=== PATIENT | female | born 1990 | race Caucasian/White ===

== ENCOUNTER 2023-11-29 08:06 | Outpatient (AMB) | payer OTHER, SELFPAY ==
--- NOTE | 2023-11-29 08:18 | A.OFFPC_ITS ---
Vital Signs 11/29/23 08:28 Height 5 ft 4 in Weight 163 lb 6 oz BMI 28.0 BP 102/62 Blood Pressure Location Lt brachial Position Sitting Respiration 12 Pulse 94 Pulse Source Pulse Oximeter Pulse Oximetry (%) 99 Oxygen Delivery Method Room Air Intake Visit Reasons: [facility] Intake Note: Patient is here to establish care, she is currently 21 weeks and followed by [facility]. Patient reports she has no concerns. Sea Foam Kiss Maker Required: No Accompanied by: Self / Same As Patient Allergies ceclore Allergy (Severe, Uncoded 11/29/23 08:32) Rash Medication List - Last Reconciled 11/29/23 by Melina Seo MD cetirizine (Zyrtec) 10 mg PO DAILY PRN docosahexaenoic acid ( DHA) mg PO Lactobacillus acidophilus (Acidophilus capsule) 5,000 mmu cells PO DAILY levothyroxine 75 mcg PO DAILY pyridoxine (vitamin B6) 50 mg PO DAILY Tobacco use date assessed: 11/29/23 Dental Screening Dental Screen Date: 11/29/23 Did you have a dental visit in the last 12 months?: Yes Did you have a dental problem in the last 6 months where you did not have access to dental care?: No Was dental information given to patient?: Patient has dentist HPI HPI Comments History of Present Illness Details The patient is a 33-year-old female with a past medical history of hypothyroid presenting follow-up. Currently 21 weeks . 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 Last TSH 05.14. Has had a lot of fatigue and nausea with her Hypothyroid: on levothyroxine daily. Allergies On budesonide sinus rinse, p.r.n. 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 NAD EYES: EOMI. Anicteric. HENT: Moist mucous membranes. No scleral icterus. No cervical lymphadenopathy. LUNGS: Clear to auscultation bilaterally. CARDIOVASCULAR: Regular rate and rhythm. No murmur. No JVD. ABDOMEN: Soft, non-tender +bs EXTREMITIES: No edema. Non-tender. SKIN: No rashes or lesions. Warm. NEUROLOGIC: No focal neurological deficits. CN II-XII grossly intact PSYCHIATRIC: Cooperative. 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 Acid reflux disease Anxiety Asthma Surgical History No pertinent past surgical history Family History Mother High cholesterol Father Asthma Thyroid disease Social History Household Members: Spouse Household Members Other:: , 2 cats Housing: House Are you a primary manager career to a significant other at home: No Do you presently have visiting nurse or other home services: No 75 years or older and lives alone: No Alcohol intake: former Comment: social only prior to Patient Tobacco Use Status: Never used Tobacco e-Cigarette/Vaping Use: Never Used Use of substances other than those prescribed or required for medical reasons: No Have you been hit, kicked, punched, or otherwise hurt by someone within the past year? 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 1. Little interest or pleasure in doing things: not at all 2. Feeling down, depressed, or hopeless: not at all 3. Trouble falling or staying asleep, or sleeping too much: several days 4. Feeling tired or having little energy: several days 5. Poor appetite or overeating: several days 6. Feeling bad about yourself - or that you are a failure or have let yourself or your family down: not at all 7. Trouble concentrating on things, such as reading the newspaper or watching television: not at all 8. Moving or speaking so slowly that other people could have noticed. Or the opposite - being so fidgety or restless that you have been moving around a lot more than usual: several days 9. Thoughts that you would be better off or of hurting yourself in some way: not at all Total score: 4 Depression Screening Interpretation: Negative (Neg) Depression Screening Done: Yes 67026 - PHQ-9 Billing: Yes Source: Developed by Drs. Kingsley Huerta, Pavithra Jasso, Theodore Christianson and colleagues, with an educational lelo from [employer]. Thrive Questionnaire Date Thrive assessed: 11/29/23 I am a: Patient What is your living situation today?: I have a steady place to live Within the past 12 months, did the food you bought not last and you didn't have the money to get more?: Never true Within the past 12 months, did you worry whether your food would run out before you got money to buy more?: Never true Do you have trouble paying for medicines?: No Do you have trouble getting transportation to medical appointments?: No Do you have trouble paying your heating and electricity bill?: No Do you have trouble taking care of your child, family member or friend?: No Do you have trouble with day-to-day activities such as bathing, preparing meals, shopping, managing finances, etc.?: No Are you currently unemployed and looking for a job?: No Are you interested in more education?: No Please select the resources that you would like help with: None Currently or been in a relationship where the following occur: No concerns reported THRIVE Score: 0 AUDIT C Alcohol Use Questionnaire (AUDIT-C) 1. How often do you have a drink containing alcohol?: Never 3. How often do you have six or more drinks on one occasion?: Never Total Score: 0 BREONNA-7 AMB Questionnaire BREONNA-7 Date BREONNA - 7 assessed: 11/29/23 Feeling nervous, anxious, or on edge: 1 = Several days Not being able to stop or control worryin = Not at all Worrying too much about different things: 1 = Several days Trouble relaxin = Not at all Being so restless that it is hard to sit still: 0 = Not at all Becoming easily annoyed or irritable: 0 = Not at all Feeling afraid as if something awful might happen: 0 = Not at all Total BREONNA-7 score (0-4 normal; 5-9 mild; 10-14 moderate; 15-21 severe): 2 Source: Developed by Drs. Kingsley Huerta, Pavithra Jasso, Theodore Christianson and colleagues, with an educational lelo from [employer]. BREONNA-7 Assessment Billing BREONNA-7 Assessment Tool: BREONNA-7 Assessment 29339 Physical exam (Primary Care) Vital Signs: Last Vital Signs Pulse 94 11/29/23 08:28 Resp 12 11/29/23 08:28 BP 102/62 11/29/23 08:28 Pulse Ox 99 11/29/23 08:28 Oxygen Delivery Method Room Air 11/29/23 08:28 BMI result Body Mass Index 28.0 Tobacco/Smoking Status: Tobacco use Status Tobacco use date assessed 11/29/23 11/29/23 08:39 Patient Tobacco Use Status Never used Tobacco 11/29/23 08:44 e-Cigarette/Vaping Use Never Used 11/29/23 08:44 PHQ-9: PHQ-9 Score PHQ-9: Total score 4 11/29/23 08:49 Depression Screening Interpretation: Negative (Neg) Thrive Assessment: Date of Thrive Assessment Date Thrive assessed 11/29/23 11/29/23 08:39 Currently or been in a relationship where the following occur: No concerns reported Assessment and Plan Assessment & Plan (1) : Code(s): Z34.90 - Encounter for supervision of normal , unspecified, unspecified trimester Qualifiers: Weeks of gestation: 21 weeks Qualified Code(s): Z3A.21 - 21 weeks gestation of Plan: Continue follow up 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 (2) Hypothyroid: Code(s): E03.9 - Hypothyroidism, unspecified Qualifiers: Hypothyroidism type: unspecified Qualified Code(s): E03.9 - Hypothyroidism, unspecified Plan: Check TSH Levothyroxine dose has not been adjusted thus far Orders: Orders TSH reflex Free T4 Today E03.9 - Hypothyroidism, unspecified Coding Level of Care Code Est Pt Level 4 (70145) Complex EM visit Add On G2211 Diagnoses 21 weeks gestation of Z3A.21 Weeks of gestation: 21 weeks Hypothyroidism, unspecified type E03.9 Hypothyroidism type: unspecified Additional Codes BREONNA-7 Assessment Billing - BREONNA-7 Assessment Tool: BREONNA-7 Assessment 06581 ([id number])
[2023-11-29 08:28] VITALS: BP 102/62; PULSE 94; RESP 12; O2SAT 99; BMI 28.0
== END 2023-11-29 09:51 | disposition home or self-care (01) ==
PROVIDERS: PCP Internal Medicine; Visit Provider Internal Medicine
DX: E03.9 Hypothyroidism, unspecified (principal); Z3A.21 21 weeks gestation of pregnancy
CPT/HCPCS: 99214

== ENCOUNTER 2023-11-29 09:42 | Outpatient (REF) | payer OTHER, SELFPAY ==
[2023-11-29 12:54] LABS: TSH reflex Free T4 1.65 uIU/mL (0.32-4.0)
== END 2023-11-29 09:43 | disposition home or self-care (01) ==
LOC: HO.WFDLDS 09:42
PROVIDERS: Visit Provider Internal Medicine
DX: E03.9 Hypothyroidism, unspecified (principal)
CPT/HCPCS: 36415; 84443

== ENCOUNTER 2024-06-12 15:55 | Outpatient (AMB) | payer OTHER, SELFPAY ==
--- OUTSIDE RECORDS SUMMARY | 2024-06-12 15:56 | XMS_ITS | Patient Health Record ---
Author Organization [facility] Address [address] [place] [address] Care Team Providers Care Account Service Representative Name Role Phone Humera BARROW MD, JERMAINE Primary Care Provider UnavailMADAN Argueta Unavailable [phone] Allergies Allergen (clinical drug ingredient) Drug/Non Drug Allergy documented on EMR Reaction Allergy Type Onset Date Status cefaclor Cefaclor hives Drug Allergy Active Results Component Value Reference Range Notes Test, Urine Reviewed date:08/15/2023 12:14:49 PM Interpretation: Performing Lab: Notes/Report: Test, Urine POS Reason For Referral No Information Medications Medication SIG (Take, Route, Frequency, Duration) Notes Start Date End Date Status ZyrTEC Allergy 10 MG 1 tablet Orally Onc e a day for 30 day(s) Not-Taking Sudafed 30 MG 2 tablets as needed Orally every 6 hrs Not-Taking Vitamin C 100 MG 1 tablet Orally Once a day for 30 day(s) Not-Taking Levothyroxine Sodium 75 MCG 1 tablet in the morning on an empty stomach Orally Once a day Active Budesonide 0.5 MG/2ML 1 mL Inhalation Tw ice a day Active AZO Cranberry 250-30 MG as directed Orally Active PrenaFirst Active Active Social History Tobacco Use: Social History Observation Description Date Details (start date - stop date) Never Smoker NA - NA Tobacco Use/Smoking Question Answer Notes Are you a nonsmoker Alcohol Screen (Audit-C) Question Answer Notes Did you have a drink contain ing alcohol in the past year? Yes How often did you have a dri nk containing alcohol in the past year? 2 to 4 times a month (2 points) How many drinks did you have on a typical day when you were drinking in the past year? 1 or 2 drinks (0 point) How often did you have 6 or more drinks on one occasion in the past year? Never (0 point) Points 2 Interpretation Negative Problems Problem Type SNOMED Code ICD Code Onset Dates Problem Status W/U Status Risk Notes Problem Hypothyroidism (01379614) Hypothyroidism, unspecified (E03.9) Active confirmed Problem Asthma (502602435) Other asthma (J45.998) Active confirmed Problem Amenorrhea (67244068) Amenorrhea, unspecified (N91.2) Active confirmed Problem COVID-19 (408365705) COVID-19 (U07.1) Active confirmed Vital Signs Temperature 97.5 degrees Fahrenheit 08/15/2023 Blood pressure diastolic 80 mm Hg 08/15/2023 Height 64 in 08/15/2023 Blood pressure systolic 120 mm Hg 08/15/2023 Weight 152 lbs 08/15/2023 BMI 26.09 kg/m2 08/15/2023 Encounters Encounter Location Date Provider Diagnosis [place] [address] [place] [address] 08/15/2023 MADAN WOODRUFF Amenorrhea, unspecified N91.2 [email or web address] [address] [address] 08/15/2023 MADAN WOODRUFF Assessments Encounter Date Diagnosis (ICD Code) Assessment Notes Treatment Notes Treatment Clinical Notes Section Notes 08/15/2023 Amenorrhea, unspecified (ICD-10 - N91.2) Discussed Do's and Don't's of early , including importance of eating the rainbow, organic if possible, staying hydrated, getting enough rest. Encouraged to exercise and take vitamins. Encouraged to avoid alcohol, tobacco, unnecessary medications. Discussed dietary restrictions. 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 08/15/2023 Other 32 minutes were spent on the day of the visit reviewing and prepping the chart, obtaining the HPI, examining the patient, counseling the patient on the diagnosis, ordering/refilli ng medications, ordering tests and procedures and documenting this encounter. Plan Of Treatment Pending Test Test Name Order Date ANTI-HEPATITIS C 06/04/2022 HEP. B SURF. AG 06/04/2022 SYPHILIS TESTING 06/04/2022 HIV AB-AG 4TH GENERATION 06/04/2022 Insurance Providers Payer Name Payer Address Payer Phone Subscriber Number Group Number Insured Name Patient Relationship to Insured Coverage Start Date Coverage End Date [facility] [address] [facility] [place], JAM[place] [id number] LAZARO PAGE Self - patient is the insured Medical (General) History Medical History History ICD Code Other asthma J45.998 COVID-19 U07.1 Hypothyroidism, unspecified E03.9 Surgical History Surgery Date(Month/Year) wisdom teeth extraction 2007
--- OUTSIDE RECORDS SUMMARY | 2024-06-12 15:57 | XMS_ITS ---
Author Organization [facility] Address [address] [address] Care Team Providers Care Data Keyer Name Role Phone Humera BARROW MD, JERMAINE Primary Care Provider Unavailab MADAN Rowe Unavailable [phone] REASON FOR VISIT QUESTION ABOUT BENEFIBER Encounters Encounter Location Date Provider Diagnosis [facility] [address] [address] 08/15/2023 MADAN WOODRUFF Plan Of Treatment No Information Progress Notes * LAZARO VALENCIADOB: [birth year] (32 yo F)Acc No.[id number]:08/15/2023 Patient:?LAZARO VALENCIA :1990???Age:32 Y???Sex:Female Address:[address] [place] [address], [address] * true * Date:? Generated for Moreno leyva/Joy/eTransmitting on:?06/12/2024 03:56 PM EST
--- OUTSIDE RECORDS SUMMARY | 2024-06-12 15:57 | XMS_ITS ---
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 Name Role Phone JERMAINE WHITING MD Primary Care Provider MADAN Hernandez Unavailable [phone] Allergies Allergen (clinical drug ingredient) Drug/Non Drug Allergy documented on EMR Reaction Allergy Type Onset Date Status cefaclor Cefaclor hives Drug Allergy Active Results Component Value Reference Range Notes Test, Urine Reviewed date:08/15/2023 12:14:49 PM Interpretation: Performing Lab: Notes/Report: Test, Urine POS REASON FOR VISIT + HOME PREG TEST Medications Medication SIG (Take, Route, Frequency, Duration) Notes Start Date End Date Status ZyrTEC Allergy 10 MG 1 tablet Orally Onc e a day for 30 day(s) Not-Taking Budesonide 0.5 MG/2ML 1 mL Inhalation Tw ice a day Active AZO Cranberry 250-30 MG as directed Orally Active PrenaFirst Active Active Sudafed 30 MG 2 tablets as needed Orally every 6 hrs Not-Taking Vitamin C 100 MG 1 tablet Orally Once a day for 30 day(s) Not-Taking Levothyroxine Sodium 75 MCG 1 tablet in the morning on an empty stomach Orally Once a day Active Social History Tobacco Use: Social History [...] Problem Status W/U Status Risk Notes Problem Amenorrhea ([id number]) Amenorrhea, unspecified (N91.2) Active confirmed Vital Signs Temperature 97.5 degrees Fahrenheit 08/15/19 24 Blood pressure systolic 120 mm Hg 08/15/19 24 Blood pressure diastolic 80 mm Hg 024 Height 64 in 08/15/2023 Weight 152 lbs 08/15/2023 BMI 26.09 kg/m2 08/15/2023 Encounters Encounter Location Date Provider Diagnosis [address] [place] [address] 08/15/2023 MADAN WOODRUFF Amenorrhea, unspecified N91.2 Assessments Encounter Date Diagnosis (ICD Code) Assessment [...] restrictions. 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 08/15/2023 Other 32 minutes were spent on the day of the visit reviewing and prepping the chart, obtaining the HPI, examining the patient, counseling the patient on the diagnosis, ordering/refilli ng medications, ordering tests and procedures and documenting this encounter. Plan Of Treatment Treatment Notes Assessment Notes Amenorrhea, unspecified Discussed Do's and Don't's of early , including importance of eating the rainbow, organic if possible, staying hydrated, getting enough rest. Encouraged to exercise and take vitamins. Encouraged to avoid alcohol, tobacco, unnecessary medications. Discussed dietary restrictions. 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 Other 32 minutes were spen t on the day of the visit reviewing and prepping the chart, obtaining the HPI, examining the patient, counseling the patient on the diagnosis, ordering/refilling medications, ordering tests and procedures and documenting this encounter. Next Appt Details Follow Up: prn, Reason: Progress Notes * TALI VALENCIADOB: [birth year] (32 yo F)Acc No.[id number]:08/15/2023 PROGRESS NOTES Patient:?TALI VALENCIA Provider:?MADAN WOODRUFF MD :1990???Age:32 Y???Sex:Female D ate:08/15/2023 Address:[address] [place], [place] [id number] Pcp:JERMAINE BARROW MD Subjective: * Chief Complaints: * ???+ HOME PREG TEST * HPI: ???Constitutional:? Tali is a 32 yo with LMP 07/02/23 who presents to the office with a positive home test, done on 08/03/23.? This would make her 6w1d EGA, with an EDC of 04/06/24. She has been in state of good health. She has been taking Vitamins/Folic Acid. She is happy about this . She has the following concerns: is Zyrtec OK She is to [place]. * ROS:?general:?no?nausea/vomiting.?General/Constitutional:?Admits?Fatigue.?Breast:?Admits?Breast pain.?Admits?Breast swelling.?Denies?Nipple discharge.?Women Only:?Admits?Missed period(s).?Denies?Vaginal discharge/itching.?Genitourinary:?Denies?Abdominal pain/swelling.? * Medical History:? 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 * OB History:?Total pregnancies?1.? * Surgical History:?wisdom romelia th extraction 2007 * Hospitalization/Major Diagno stic Procedure:?Denies Past Hospitalization * Family History:?Mother: alijesus e 68 yrs, high cholesterol.?Father: alive 69 yrs, high cholesterol, afib.?1 brother(s) , 1 sister(s) . .? Sister - Daya - 1981 - well Brother - Denny - 1987 - hydrocephalus since Denies family history of breast, colon, uterine or ovarian cancers. * Social History:?Tobacco Use:?Tobacco Use/Smoking?Are you a?nonsmoker ???Drugs/Alcohol:?Drugs?Have you used drugs other than those for medical reasons in the past 12 months??No ?Alcohol Screen (Audit-C)?Did you have a drink containing alcohol in the past year??Yes ?How often did you have a drink containing alcohol in the past year??2 to 4 times a month (2 points) ?How many drinks did you have on a typical day when you were drinking in the past year??1 or 2 drinks (0 point) ?How often did you have 6 or more drinks on one occasion in the past year??Never (0 point) ?Points?2 ?Interpretation?Negative ???Miscellaneous:?Children: no. ?Domestic violence: no. ?Exercise: yes, WORKOUT 5-6 X A WEEK. ?Home smoke detector use: yes, smoke detectors, carbon monoxide detector. ?Housing: owns a home. ?Living with: spouse. ?Marital status: , [place]. 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 ?Pets: cats: 2. ?Sexual abuse: no. ?Verbal abuse: no. * Medications:?TakingPrenatal PrenaFirst AZO Cranberry 250-30 MG Tablet as directed Orally Budesonide 0.5 MG/2ML Suspension 1 mL Inhalation Twice a day Levothyroxine Sodium 75 MCG Tablet 1 tablet in the morning on an empty stomach Orally Once a day Taking Taking PrenaFirst Taking AZO Cranberry 250-30 MG Tablet as directed Orally Taking Budesonide 0.5 MG/2ML Suspension 1 mL Inhalation Twice a day Taking Levothyroxine Sodium 75 MCG Tablet 1 tablet in the morning on an empty stomach Orally Once a day Not-TakingVitamin C 100 MG Tablet Chewable 1 tablet Orally Once a day Sudafed 30 MG Tablet 2 tablets as needed Orally every 6 hrs ZyrTEC Allergy 10 MG Tablet 1 tablet Orally Once a day Medication List reviewed and reconciled with the patientNot-Taking Vitamin C 100 MG Tablet Chewable 1 tablet Orally Once a day Not-Taking Sudafed 30 MG Tablet 2 tablets as needed Orally every 6 hrs Not- Taking ZyrTEC Allergy 10 MG Tablet 1 tablet Orally Once a day Medication List reviewed and reconciled with the patient * Allergies:?Cefaclor: hivesno [Allergies Verified] Objective: * Vitals:?Ht: 64 in, Wt:152lbs , BMI:26.09Index, BP:120/80mm Hg, Temp:97.5F. * Examination: ???Genitourinary - Female: ?GENERAL APPEARANCE:? alert, oriented, no apparent distress, probation manager present for exam.?ABDOMEN:? soft, non-tender, no mass.?EXTERNAL GENITALS:? normal.?URETHRAL MEATUS:? normal.?VAGINA:? healthy pink mucosa without any lesions.?ANUS/PERINEUM:? normal.?CERVIX:? downward, normal appearing, long/thick/closed, no cervical movement tenderness.?UTERUS:? normal size, mobile, non tender.?OVARIES:? no masses felt in adnexa.? Assessment: * Assessment: 1.?Amenorrhea, unspecified - N91.2 (Primary)? Plan: * Treatment: ? Value Reference Range ? Test, Urine POS * ETIENNE Mendosa 08/15/2023 10:04:13 AM EDT > Notes: Discussed Do's and Don't's of early , including importance of eating the rainbow, organic if possible, staying hydrated, getting enough rest. Encouraged to exercise and take vitamins. Encouraged to avoid alcohol, tobacco, unnecessary medications. Discussed dietary restrictions. 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 Notes: 32 minutes were spent on the day of the visit reviewing and prepping the chart, obtaining the HPI, examining the patient, counseling the patient on the diagnosis, ordering/refilling medications, ordering tests and procedures and documenting this encounter.?? * Procedure Codes:? * Preventive Medicine:? ~~~~~~~~~~~~~~~~~~~~~~~~~~~~~~~~~~ Patient education: symptoms (The Basics) ~~~~~~~~~~~~~~~~~~~~~~~~~~~~~~~~~~ Written by the doctors and editors at [facility] ~~~~~~~~~~~~~~~~~~~~~~~~~~ How much do symptoms vary? ~~~~~~~~~~~~~~~~~~~~~~~~~~ Symptoms during are different from woman to woman. Also, a woman can have different symptoms from one to the next. Even so, there are certain symptoms that are common during . This article discusses symptoms that can happen during a normal, healthy . ~~~~~~~~~~~~~~~~~~~~~~~~~~~~~~~ What symptoms are common early in ? ~~~~~~~~~~~~~~~~~~~~~~~~~~~~~~~ Early in , sometimes even before a woman knows she is , common symptoms can include: - Nausea, with or without vomiting - This is called morning sickness, but it can happen at any time of the day. For most women, morning sickness lasts only the first few months of . - The breasts getting bigger and feeling painful - Needing to urinate more often than usual - Feeling more tired than usual - Mild cramping in the lower belly What symptoms can happen later in ? ~~~~~~~~~~~~~~~~~~~~~~~~~~~~~~~ Many different symptoms can happen later in . These can include: - Heartburn or indigestion - This can feel like a burning feeling in your chest or throat, or pain in your stomach or chest. - Constipation, which means trouble having bowel movements - Hemorrhoids, which are swollen veins in the rectum that can be painful or itchy - They might bleed a little when you have a bowel movement. - Stuffy nose and nosebleeds - Feeling short of breath - This can get worse slowly as your progresses. - Low back pain - Leg cramps - Trouble sleeping - Headaches - Bleeding from your gums - Needing to urinate more often than usual or during the night - Feeling tired - Your hair getting thicker - Mild swelling in your feet or ankles - Numbness or tingling in your hand, foot, or leg - Varicose veins, which are swollen and twisted veins - False contractions - Contractions are when the uterus tightens. This can cause pain and make the belly feel hard. False contractions, also called [place] contractions, do not mean you are in labor. These are different than true contractions, which do mean you are in labor. - Skin changes - Lots of different skin changes can happen during . Some of these include: -Skin color changes - Your palms might turn pink or red. Also, the skin on parts of your body can turn darker. This includes areas on your face or around your nipples (picture 1). -A dark line in the middle of your stomach from your belly button to your pubic area -Stretch patrick - These look like red lines and are most common on the belly, breast, and thighs. -Spider veins - These look like tiny red spiderwebs on the skin. They are most common on the neck, face, upper chest, arms, and hands. -Skin tags, which are small growths of normal skin ~~~~~~~~~~~~~~~~~~~~~~~~~~ When should I call my doctor or paper box cutter? ~~~~~~~~~~~~~~~~~~~~~~~~~~ You should call your doctor or paper box cutter if you: - Have bleeding from your vagina - Have fluid leaking from your vagina - Don't feel your baby move around as much as it used to - Have back or belly pain that doesn't get better with things you can try yourself, such as resting or changing your position - Feel faint or dizzy - Have heartburn that doesn't get better when you take an antacid medicine - Have a headache that doesn't get better after you rest for an hour in a dark, quiet room - Have pain when you urinate or blood in your urine - Have a fever - Have contractions that get stronger and more frequent - Have pain when you breathe - See dark spots or flashes of light, or have blurry vision - Have concerns about a change in your health (for example, vomiting or a new rash) ~~~~~~~~~~~~~~~~~~~~~~~~~ Fruits and Vegetables - eat organic or not ~~~~~~~~~~~~~~~~~~~~~~~~~ EWG's* Dirty Dozen for 2022 _ __ __ __ __ __ __ __ __ If you can't afford to eat completely organic, these are the most important fruits and vegetables to be organic Strawberries Spinach Kale, bryant and mustard greens Peaches Pears Nectarines Apples Grapes Pena and hot peppers Cherries Blueberries Green beans _ __ __ __ __ __ __ __ __ __ EWG's* Clean Fifteen for 2022 _ __ __ __ __ __ __ __ __ __ If you can't afford to eat completely organic, these are the best options for non-organic fruits/vegetables Avocados Sweet corn Pineapple Onions Papaya Sweet peas (frozen) Asparagus Honeydew melon Kiwi Cabbage Mushrooms Mangoes Sweet potatoes Watermelon Carrots *EWG - Environmental Working Group. * Follow Up:?prn * Images: Billing Information: * Visit Code:? 61605 OFFICE O/P EST MOD 30 MIN. * Procedure Codes:? * Sign off status: Completed true * Provider:?MADAN WOODRUFF MD Date:?2023 Generated for Moreno leyva/Joy/eTransmitting on:?06/12/2024 03:56 PM EST History and Physical Notes * HPI (History of Present Illness) Category Sub-Category Detail Notes Category Not es Constitutional Tali is a 32 yo with LMP 07/02/23 who presents to the office with a positive home test, done on 08/03/23. This would make her 6w1d EGA, with an EDC of 04/06/24. She has been in state of good health. She has been taking Vitamins/Folic Acid. She is happy about this . She has the following concerns: is Zyrtec OK She is to [place]. Examination Category Sub-Category Detail Notes Category Not es Genitourinary - Female ABDOMEN: soft, non-tender, no mass EXTERNAL GENITALS: normal VAGINA: healthy pink mucosa without any lesions CERVIX: downward, normal stephania earing, long/thick/closed, no cervical movement tenderness UTERUS: normal size, mobile, non tender OVARIES: no masses felt in ad nexa GENERAL APPEARANCE: alert, oriented, no apparent distress, probation manager present for exam URETHRAL MEATUS: normal ANUS/PERINEUM: normal
--- OUTSIDE RECORDS SUMMARY | 2024-06-12 15:57 | XMS_ITS ---
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 * Medical History:? Objective: * Vitals:? Assessment: Plan: * Treatment: * Images: Billing Information: * Visit Code:? * Procedure Codes:? * Electronic signature of MADAN WOODRUFF MD on 06/12/2024 at 03:57 PM EST Sign off status: Pending * Provider:EULA WOODRUFF MD Date:?2024 Generated for Printi ng/Fajodig/eTransmitting on:?06/12/2024 03:57 PM EST
--- NOTE | 2024-06-12 16:03 | A.OFFPC_ITS ---
Vital Signs 06/12/24 16:06 Weight 152 lb BP 96/64 Blood Pressure Location Lt brachial Position Sitting Respiration 12 Pulse 74 Pulse Source Pulse Oximeter Intake Visit Reasons: physical Intake Note: Physical Simulation Technician Required: No Allergies ceclore Allergy (Severe, Uncoded 06/12/24 16:03) Rash Tobacco use date assessed: 06/12/24 Dental Screening Dental Screen Date: 11/29/23 HPI HPI Comments History of Present Illness Details The patient is a 33-year-old female with a past medical history of hypothyroid presenting for physical exam Hypothyroid: on levothyroxine daily. Allergies On budesonide sinus rinse, p.r.n. 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 NAD EYES: EOMI. Anicteric. HENT: Moist mucous membranes. No scleral icterus. No cervical lymphadenopathy. LUNGS: Clear to auscultation bilaterally. CARDIOVASCULAR: Regular rate and rhythm. No murmur. No JVD. ABDOMEN: Soft, non-tender +bs EXTREMITIES: No edema. Non-tender. SKIN: No rashes or lesions. Warm. NEUROLOGIC: No focal neurological deficits. CN II-XII grossly intact PSYCHIATRIC: Cooperative. 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 Acid reflux disease Anxiety Asthma Surgical History No pertinent past surgical history Family History Mother High cholesterol Father Asthma Thyroid disease Social History Household Members: Spouse Household Members Other:: , 2 cats Housing: House Are you a primary respiratory care assistant to a significant other at home: No Do you presently have visiting nurse or other home services: No 75 years or older and lives alone: No Alcohol intake: former Comment: social only prior to Patient Tobacco Use Status: Never used Tobacco e-Cigarette/Vaping Use: Never Used service: No Current occupational status: employed 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 1. Little interest or pleasure in doing things: not at all 2. Feeling down, depressed, or hopeless: not at all 3. Trouble falling or staying asleep, or sleeping too much: not at all 4. Feeling tired or having little energy: not at all 5. Poor appetite or overeating: not at all 6. Feeling bad about yourself - or that you are a failure or have let yourself or your family down: not at all 7. Trouble concentrating on things, such as reading the newspaper or watching television: not at all 8. Moving or speaking so slowly that other people could have noticed. Or the opposite - being so fidgety or restless that you have been moving around a lot more than usual: not at all 9. Thoughts that you would be better off or of hurting yourself in some way: not at all Total score: 0 Depression Screening Interpretation: Negative Depression Screening Done: Yes 45883 - PHQ-9 Billing: Yes Source: Developed by Drs. Kingsley Huerta, Pavithra Jasso, Theodore Christianson and colleagues, with an educational lelo from [employer]. Thrive Questionnaire Date Thrive assessed: 06/09/24 I am a: Patient What is your living situation today?: I have a steady place to live Within the past 12 months, did the food you bought not last and you didn't have the money to get more?: Never true Within the past 12 months, did you worry whether your food would run out before you got money to buy more?: Never true Do you have trouble paying for medicines?: No Do you have trouble getting transportation to medical appointments?: No Do you have trouble paying your heating and electricity bill?: No Do you have trouble taking care of your child, family member or friend?: No Do you have trouble with day-to-day activities such as bathing, preparing meals, shopping, managing finances, etc.?: No Are you currently unemployed and looking for a job?: No Are you interested in more education?: No Please select the resources that you would like help with: None Currently or been in a relationship where the following occur: No concerns reported THRIVE Score: 0 AUDIT C Alcohol Use Questionnaire (AUDIT-C) 1. How often do you have a drink containing alcohol?: Never Total Score: 0 BREONNA-7 AMB Questionnaire BREONNA-7 Date BREONNA - 7 assessed: 06/12/24 Feeling nervous, anxious, or on edge: 1 = Several days Not being able to stop or control worryin = Not at all Worrying too much about different things: 0 = Not at all Trouble relaxin = Not at all Being so restless that it is hard to sit still: 0 = Not at all Becoming easily annoyed or irritable: 0 = Not at all Feeling afraid as if something awful might happen: 0 = Not at all Total BREONNA-7 score (0-4 normal; 5-9 mild; 10-14 moderate; 15-21 severe): 1 Source: Developed by Drs. Kingsley Huerta, Pavithra Jasso, Theodore Christianson and colleagues, with an educational lelo from [employer]. BREONNA-7 Assessment Billing BREONNA-7 Assessment Tool: BREONNA-7 Assessment 32361 Physical exam (Primary Care) Vital Signs: Last Vital Signs Pulse 74 06/12/24 16:06 Resp 12 06/12/24 16:06 BP 96/64 06/12/24 16:06 Tobacco/Smoking Status: Tobacco use Status Tobacco use date assessed 06/12/24 06/12/24 16:10 Patient Tobacco Use Status Never used Tobacco 06/12/24 16:10 e-Cigarette/Vaping Use Never Used 06/12/24 16:10 PHQ-9: PHQ-9 Score PHQ-9: Total score 0 06/15/24 08:37 Depression Screening Interpretation: Negative Thrive Assessment: Date of Thrive Assessment Date Thrive assessed 06/09/24 06/12/24 16:10 Currently or been in a relationship where the following occur: No concerns reported Coding Level of Care Code Est Pt Level 4 (95172) Est Pt Prev Care 18-39y(96962) Diagnoses Physical exam Z00.00 Hypothyroidism, unspecified type E03.9 Hypothyroidism type: unspecified Additional Codes BREONNA-7 Assessment Billing - BREONNA-7 Assessment Tool: BREONNA-7 Assessment 58648 ([id number]) PHQ-9 - 45675 - PHQ-9 Billing: Yes ([id number]) Assessment & Plan Assessment & Plan (1) Physical exam: Code(s): Z00.00 - Encounter for general adult medical examination without abnormal findings Category: Medical Plan: 33 y/o for physical exam. Preventive measures reviewed. Interval history reviewed. Medications reconciled (2) Hypothyroid: Code(s): E03.9 - Hypothyroidism, unspecified Category: Medical Qualifiers: Hypothyroidism type: unspecified Qualified Code(s): E03.9 - Hypothyroidism, unspecified Plan: clinically and biochemically euthyroid Orders: Orders Lipid Panel 06/12/24 E03.9 - Hypothyroidism, unspecified, Z00.00 - Encounter for general adult medical examination without abnormal findings Complete Blood Count Auto Diff 06/12/24 E03.9 - Hypothyroidism, unspecified, Z00.00 - Encounter for general adult medical examination without abnormal findings TSH reflex Free T4 06/12/24 E03.9 - Hypothyroidism, unspecified, Z00.00 - Encounter for general adult medical examination without abnormal findings Comprehensive Met. Panel 06/12/24 E03.9 - Hypothyroidism, unspecified, Z00.00 - Encounter for general adult medical examination without abnormal findings
[2024-06-12 16:06] VITALS: BP 96/64; PULSE 74; RESP 12
== END 2024-06-12 16:29 | disposition home or self-care (01) ==
PROVIDERS: PCP Internal Medicine; Visit Provider Internal Medicine
DX: Z00.00 Encounter for general adult medical examination without abnormal findings (principal); E03.9 Hypothyroidism, unspecified

== ENCOUNTER → 2024-06-12 15:55 | Outpatient (BNVA) | payer OTHER, SELFPAY | PROVIDERS: PCP Internal Medicine; Visit Provider Internal Medicine | DX: Z00.00 Encounter for general adult medical examination without abnormal findings (principal); E03.9 Hypothyroidism, unspecified | CPT/HCPCS: 96127 ==

== ENCOUNTER 2024-07-30 14:49 | Outpatient (REF) | payer OTHER, SELFPAY ==
[2024-07-30 17:58] LABS: MANUAL DIFF FLAG NO
[2024-07-30 18:04] LABS: Basophils Absolute Auto 0.1 X10*3/uL (0.0-0.2); Basophils Percent Auto 0.9 % (0-2); Eosinophils Absolute Auto 0.3 X10*3/uL (0.0-0.4); Eosinophils Percent Auto 2.9 % (0-4); Hematocrit 37.8 % (37.0-47.0); Hemoglobin 12.7 g/dl (12.0-16.0); Imm Gran Abs Auto 0.03 X10*3/uL (0.00-0.03); Imm Gran Pct Auto 0.3 % (0.0-0.4); Lymphocytes Percent Auto 22.3 % (20-40); Mean Corpuscular HGB Conc 33.6 g/dl (31.0-35.0); Mean Corpuscular Hemoglobin 30.2 pg (27.0-33.0); Mean Platelet Volume 11.9 fL (9.4-12.3); Monocytes Absolute Auto 0.6 X10*3/uL (0.1-1.2); Monocytes Percent Auto 7.2 % (2-11); Neutrophils Absolute Auto 5.8 x10*3/uL (2.0-8.3); Neutrophils Percent Auto 66.4 % (45-73); Platelet Count 191 X10*3/uL (160-400); Red Cell Distribution Width 12.5 % (11.0-16.0); White Blood Count 8.7 X10*3/uL (4.8-10.8)
[2024-07-30 18:29] LABS: Alanine Aminotransferase 24 U/L (0-31); Albumin Level 4.2 g/dL (3.5-5.0); Alkaline Phosphatase 55 U/L (39-117); Anion Gap 9 (12-20); Aspartate Amino Transferase 26 U/L (5-31); Bilirubin Total 0.4 mg/dL (0.0-1.0); Blood Urea Nitrogen 26 mg/dL (9-16); Carbon Dioxide 27 mmol/L (22-29); Chloride 109 mmol/L (96-108); Cholesterol 158 mg/dL (<200); Estimated Glomerular Filt Rate > 60; Glucose Random 94 mg/dL (60-115); HDL Cholesterol 71 mg/dL (>40); LDL Cholesterol Calculated 80 mg/dL (<100); Potassium 4.5 mmol/L (3.3-5.1); Sodium 140 mmol/L (135-145); Total Protein 6.7 g/dL (6.5-8.0); Triglycerides 37 mg/dL (<150)
[2024-07-30 18:46] LABS: TSH reflex Free T4 1.67 uIU/mL (0.32-4.0)
== END 2024-07-30 14:50 | disposition home or self-care (01) ==
LOC: HO.WFDLDS 14:49
PROVIDERS: Visit Provider Internal Medicine
DX: Z00.00 Encounter for general adult medical examination without abnormal findings (principal); E03.9 Hypothyroidism, unspecified
CPT/HCPCS: 36415; 80053; 80061; 84443; 85025